=== PATIENT | male | born 1990 | race Caucasian/White ===

== ENCOUNTER 2018-05-15 17:24 | Emergency (ER) | payer OTHER ==
[~2018-05-15] VITALS: Ht 188 cm; Wt 99.8 kg
[~2018-05-15 17:24] MED LIST: IBUPROFEN 800800 MG PO; NOHOMEMEDICATIONS
[2018-05-15 18:35] LABS: ABSOLUTE EOSINOPHILS 0.1 thou/uL (0.0-0.7); ABSOLUTE LYMPHOCYTES 1.5 thou/uL (0.8-5.3); ABSOLUTE MONOCYTES 0.4 thou/uL (0.0-1.2); ABSOLUTE NEUTROPHILS 4.1 thou/uL (1.6-8.1); BASOPHILS 0.7 %; EOSINOPHILS 1.7 %; HEMATOCRIT 43.7 % (42.0-52.0); HEMOGLOBIN 14.5 gm/dL (14.0-18.0); LYMPHOCYTES 24.6 %; MCH 29.7 pg (26.0-34.0); MCHC 33.2 g/dL (28.0-37.0); MCV 89.5 fL (80.0-100.0); MONOCYTES 5.9 %; NUCLEATED RBCS 0 /100WBC; PLATELET COUNT* 212 thou/uL (150-400); POLYS 67.1 %; RBC 4.88 mil/uL (4.50-6.00); RDW-CV 13.9 % (10.5-14.5); WBC 6.1 thou/uL (4.0-11.0)
[2018-05-15 18:40] LABS: CALCIUM 8.9 mg/dL (8.5-10.1)
[2018-05-15 18:50] LABS: TOTAL BILIRUBIN 0.3 mg/dL (<0.1-1.0); TOTAL PROTEIN 7.2 g/dL (6.4-8.2); URIC ACID* 5.1 mg/dL (2.6-7.2)
[2018-05-15] MEDS ORDERED: NABUMETONE 750750 M1 PO (18:58)
[2018-05-15] MEDS ORDERED: ACETAMINOPHEN-1 EAC1 PO (18:58)
[2018-05-15] MEDS ORDERED: MEDROLDOSEPACK PO (18:58)
[2018-05-15 19:44] VITALS: BP 112/85
[2018-05-15 19:45] LABS: ESR (SEDRATE) 1 mm/hr (0-15)
== END 2018-05-15 19:45 | disposition home or self-care (01) ==
LOC: M.ERS 17:24
PROVIDERS: Nurse Practitioner Family
DX: M70.22 Olecranon bursitis, left elbow (principal)